=== PATIENT | female | born 1955 | race Caucasian/White ===

== ENCOUNTER 2016-06-08 09:55 | Inpatient (IN) | payer MEDICARE, OTHER ==
[~2016-06-08] VITALS: Ht 152.4 cm; Wt 81.6 kg
[2016-06-08 11:14] LABS: HEMOGLOBIN 16.8 gm/dl (12.3-15.3); RED BLOOD COUNT 5.57 M/UL (4.00-5.10)
[2016-06-08 11:15] LABS: WHITE BLOOD COUNT 34.4 K/UL (4.5-11.0)
[2016-06-08] MEDS ORDERED: GLUCOPHAGE500 MG PO (17:26)
[2016-06-08] MEDS ORDERED: ISOSORBIDE MONO60 MG PO (17:27)
[2016-06-08] MEDS ORDERED: PLAQUENIL 200200 MG PO (17:28)
[2016-06-08] MEDS ORDERED: REQUIP1 MG PO (17:28)
[2016-06-08] MEDS ORDERED: ZOCOR80 MG PO (17:28)
[2016-06-08] MEDS ORDERED: ARTIFICIAL TEA1 EAC1 OU (17:29)
--- NOTE | 2016-06-09 03:49 | NUR ---
PATIENT BEGAN RUNNING A TEMP OF 102.5, O2 SAT WAS HOVERING BETWEEN 87-89, HR WAS INCREASING TO THE 120S. PHYSICIAN WAS CONTACTED. HE REQUESTED REPEAT LABS AND ORDERED 650 MG TYLENOL PO Q 4 HOURS FOR TEMP GREATER THAN 100.4. TYLENOL ADMINISTERED AT 0345 AND LABS DRAWN AT THE SAME TIME.
[2016-06-09 03:59] LABS: HEMOGLOBIN 14.2 gm/dl (12.3-15.3); RED BLOOD COUNT 4.75 M/UL (4.00-5.10); WHITE BLOOD COUNT 25.5 K/UL (4.5-11.0)
[2016-06-09 04:23] LABS: BUN/CREATININE RATIO 26 (0-10)
[2016-06-10 06:11] LABS: HEMOGLOBIN 12.7 gm/dl (12.3-15.3); RED BLOOD COUNT 4.34 M/UL (4.00-5.10)
[2016-06-10 06:24] LABS: BUN/CREATININE RATIO 26 (0-10)
[2016-06-11 07:23] LABS: HEMOGLOBIN 12.5 gm/dl (12.3-15.3); RED BLOOD COUNT 4.27 M/UL (4.00-5.10); WHITE BLOOD COUNT 10.5 K/UL (4.5-11.0)
[2016-06-11 07:35] LABS: BUN/CREATININE RATIO 22 (0-10)
[2016-06-12 06:27] LABS: HEMOGLOBIN 11.9 gm/dl (12.3-15.3); RED BLOOD COUNT 4.07 M/UL (4.00-5.10); WHITE BLOOD COUNT 8.9 K/UL (4.5-11.0)
[2016-06-12] MEDS ORDERED: BACTRIM DS TAB1 EACH PO (12:27)
== END 2016-06-12 12:46 | disposition home or self-care (01) | DRG 872 ==
LOC: ER1 09:55 → M/S 14:24 → ZEROF 14:24 → M/S 16:46
PROVIDERS: Emergency Medicine; Physician Assistant Medical; ADMIT Internal Medicine
DX: A41.59 Other Gram-negative sepsis (principal); N10 Acute pyelonephritis; R65.20 Severe sepsis without septic shock; B96.1 Klebsiella pneumoniae [K. pneumoniae] as the cause of diseases classified elsewhere; E11.9 Type 2 diabetes mellitus without complications; E78.5 Hyperlipidemia, unspecified; M19.90 Unspecified osteoarthritis, unspecified site; E66.9 Obesity, unspecified; F17.200 Nicotine dependence, unspecified, uncomplicated; Z87.442 Personal history of urinary calculi; Z79.84 Long term (current) use of oral hypoglycemic drugs; Z79.899 Other long term (current) drug therapy; Z88.0 Allergy status to penicillin; Z68.35 Body mass index [BMI] 35.0-35.9, adult; Z98.1 Arthrodesis status; Z98.42 Cataract extraction status, left eye; Z98.890 Other specified postprocedural states; Z80.51 Family history of malignant neoplasm of kidney; Z80.52 Family history of malignant neoplasm of bladder; Z82.49 Family history of ischemic heart disease and other diseases of the circulatory system
CPT/HCPCS: 36415; 51702; 71010; 80048; 80053; 81001; 82962; 83605; 83690; 83735; 84484; 85025; 85027; 87040; 87077; 87086; 87186; 93005; 94640; 94664; 96361; 96365; 99285; J1335; J1650; J2185; J2405; J7030; J7050

== ENCOUNTER → 2016-09-09 | Outpatient (CLI) | payer MEDICARE ==
[~2016-09-09] MED LIST: ARTIFICIAL TEA1 EAC1 OU; BACTRIM DS TAB1 EACH PO; GLUCOPHAGE500 MG PO; ISOSORBIDE MONO60 MG PO; PLAQUENIL 200200 MG PO; REQUIP1 MG PO; ZOCOR80 MG PO
== END ==
LOC: HEART 5 07:32
DX: R06.00 Dyspnea, unspecified (principal); R01.1 Cardiac murmur, unspecified
CPT/HCPCS: 93306

== ENCOUNTER → 2016-09-12 | Outpatient (CLI) | payer MEDICARE | LOC: LAB 09:46 | DX: F17.210 Nicotine dependence, cigarettes, uncomplicated (principal) | CPT/HCPCS: G0297 ==

== ENCOUNTER → 2020-04-11 | Outpatient (CLI) | payer MEDICARE, OTHER ==
[~2020-04-11] MED LIST changes: +ALBUTEROL2.5 MG/3 M INH; +AMMONIUM LACTATE TD; +ASPIRIN EC81 MG PO; +B-COMPLEX PO; +B12 PO; +CALTRATE 600 +1 EAC1 PO; +CETIRIZINE HCL10 MG PO; +CRESTOR40 MG PO; +CYCLOBENZAPRINE5 MG PO; +D3 PO; +ECOTRIN81 MG PO; +FLOMAX0.4 MG PO; +NAPROXEN500 MG PO; +OXYBUTYNIN CHLOR5 MG PO; +PATADAY5 ML EYEBOTH; +ROPINIROLE HCL2 MG PO; +SIMVASTATIN40 MG PO; +TAMSULOSIN HCL0.4 MG PO; +TYLENOL #3 PO; +VIT C PO; +VITAMIN C500 M4 PO; +VITAMIN D PO; +WOMENS PROBIOTIC PO; +ZYRTEC10 MG PO
[2020-04-11 11:20] LABS: HEMOGLOBIN 15.7 gm/dl (12.3-15.3); RED BLOOD COUNT 5.08 M/UL (4.00-5.10); WHITE BLOOD COUNT 6.7 K/UL (4.5-11.0)
[2020-04-11 11:45] LABS: BUN/CREATININE RATIO 23 (0-10)
[2020-04-12 10:09] LABS: CREATININE, URINE 19.5 mg/dL (Not Estab.)
== END ==
LOC: LAB 10:01
PROVIDERS: Nurse Practitioner Family
DX: Z00.00 Encounter for general adult medical examination without abnormal findings (principal); E11.9 Type 2 diabetes mellitus without complications; J30.9 Allergic rhinitis, unspecified; I35.1 Nonrheumatic aortic (valve) insufficiency; M25.50 Pain in unspecified joint; R53.83 Other fatigue; E78.00 Pure hypercholesterolemia, unspecified; E53.8 Deficiency of other specified B group vitamins; E55.9 Vitamin D deficiency, unspecified; M06.9 Rheumatoid arthritis, unspecified
CPT/HCPCS: 80053; 80061; 82043; 82570; 82607; 83036; 84439; 84443; 85025; 85652; 86140

== ENCOUNTER → 2020-04-17 | Outpatient (CLI) | payer MEDICARE, OTHER | LOC: EXRD 09:46 | DX: M54.5 Low back pain (principal); M47.816 Spondylosis without myelopathy or radiculopathy, lumbar region | CPT/HCPCS: 72100 ==

== ENCOUNTER → 2020-04-22 | Outpatient (CLI) | payer MEDICARE, OTHER | LOC: EXRD 09:00 | DX: I73.9 Peripheral vascular disease, unspecified (principal); M79.609 Pain in unspecified limb | CPT/HCPCS: 93922; 93925 ==

== ENCOUNTER → 2020-06-25 | Day surgery (SDC) | payer MEDICARE, OTHER | END | disposition home or self-care (01) | LOC: OR 07:32 | DX: N32.81 Overactive bladder (principal); R30.0 Dysuria; R35.0 Frequency of micturition; N32.89 Other specified disorders of bladder; E78.00 Pure hypercholesterolemia, unspecified; E11.9 Type 2 diabetes mellitus without complications; M19.90 Unspecified osteoarthritis, unspecified site; M81.0 Age-related osteoporosis without current pathological fracture; F17.210 Nicotine dependence, cigarettes, uncomplicated; Z87.440 Personal history of urinary (tract) infections; Z80.52 Family history of malignant neoplasm of bladder; Z88.0 Allergy status to penicillin; Z88.8 Allergy status to other drugs, medicaments and biological substances; Z79.82 Long term (current) use of aspirin; Z79.899 Other long term (current) drug therapy | CPT/HCPCS: 81001; C1769; C1894; C2617; J7030; J7120 ==

== ENCOUNTER → 2020-07-13 | Outpatient (CLI) | payer MEDICARE, OTHER | LOC: KOH-I 08:56 | DX: R29.2 Abnormal reflex (principal); M51.17 Intervertebral disc disorders with radiculopathy, lumbosacral region; M48.04 Spinal stenosis, thoracic region | CPT/HCPCS: 72148 ==

== ENCOUNTER → 2020-10-12 | Outpatient (CLI) | payer MEDICARE, OTHER | LOC: KOH-I 12:35 | DX: F17.210 Nicotine dependence, cigarettes, uncomplicated (principal) | CPT/HCPCS: 71271 ==

== ENCOUNTER → 2020-12-25 | Outpatient (CLI) | payer MEDICARE, OTHER ==
[~2020-12-25] MED LIST changes: +AMITRIPTYLINE H25 MG PO; +HYDROCODON-ACE1 EAC2 PO; +PEPCID40 MG PO
[2020-12-25 11:20] LABS: HEMOGLOBIN 16.1 gm/dl (12.3-15.3); RED BLOOD COUNT 5.19 M/UL (4.00-5.10); WHITE BLOOD COUNT 8.6 K/UL (4.5-11.0)
[2020-12-25 11:45] LABS: BUN/CREATININE RATIO 28 (0-10)
== END ==
LOC: OPSV2 10:00 → EDSTATUS 10:00
PROVIDERS: Orthopaedic Surgery
DX: Z01.818 Encounter for other preprocedural examination (principal); M54.16 Radiculopathy, lumbar region
CPT/HCPCS: 36415; 71046; 80048; 85027; 85610; 85730; 87081; 87086; 93005

== ENCOUNTER → 2021-01-03 | Outpatient (CLI) | payer MEDICARE, OTHER ==
[~2021-01-03] MED LIST changes: +NEURONTIN300 MG PO
[2021-01-03 11:28] LABS: BUN/CREATININE RATIO 23 (0-10)
== END ==
LOC: LAB 10:44
PROVIDERS: Orthopaedic Surgery
DX: M54.16 Radiculopathy, lumbar region (principal)
CPT/HCPCS: 80048; 86850; 86900; 86901

== ENCOUNTER → 2021-01-04 | Day surgery (SDC) | payer MEDICARE, OTHER ==
[~2021-01-04] VITALS: Ht 152.4 cm; Wt 71.2 kg
== END | disposition home or self-care (01) ==
LOC: OR 05:23
DX: M51.17 Intervertebral disc disorders with radiculopathy, lumbosacral region (principal); M48.07 Spinal stenosis, lumbosacral region; E78.5 Hyperlipidemia, unspecified; M19.90 Unspecified osteoarthritis, unspecified site; G25.81 Restless legs syndrome; R73.03 Prediabetes; Z79.82 Long term (current) use of aspirin; Z79.899 Other long term (current) drug therapy; Z88.0 Allergy status to penicillin; Z20.822 Contact with and (suspected) exposure to COVID-19
CPT/HCPCS: 72020; 76000; J0690; J1040; J1100; J2001; J2405; J2704; J2710; J3010; J3370; J7040; J7120

== ENCOUNTER → 2021-01-15 | Outpatient (CLI) | payer MEDICARE, OTHER | LOC: EXRD 10:53 | DX: R07.9 Chest pain, unspecified (principal); J18.1 Lobar pneumonia, unspecified organism | CPT/HCPCS: 71046 ==

== ENCOUNTER → 2021-02-04 | Outpatient (CLI) | payer MEDICARE, OTHER ==
[2021-02-04 14:12] LABS: HEMOGLOBIN 16.4 gm/dl (12.3-15.3); RED BLOOD COUNT 5.32 M/UL (4.00-5.10)
[2021-02-04 14:31] LABS: BUN/CREATININE RATIO 20 (0-10)
[2021-02-05 08:14] LABS: VITAMIN D, 25-HYDROXY 40.9 ng/mL (30.0-100.0)
[2021-02-05 11:14] LABS: CREATININE, URINE 35.5 mg/dL (Not Estab.)
== END ==
LOC: LAB 13:14
PROVIDERS: Nurse Practitioner Family
DX: R53.83 Other fatigue (principal); E11.9 Type 2 diabetes mellitus without complications; R73.9 Hyperglycemia, unspecified; J30.9 Allergic rhinitis, unspecified; I35.1 Nonrheumatic aortic (valve) insufficiency; F41.9 Anxiety disorder, unspecified; R06.00 Dyspnea, unspecified; E53.8 Deficiency of other specified B group vitamins; E55.9 Vitamin D deficiency, unspecified; M25.50 Pain in unspecified joint; J44.9 Chronic obstructive pulmonary disease, unspecified; R10.13 Epigastric pain; R07.9 Chest pain, unspecified
CPT/HCPCS: 36415; 80053; 81001; 82043; 82550; 82552; 82553; 82570; 82607; 83036; 83615; 83625; 84439; 84443; 84484; 85025

== ENCOUNTER → 2021-02-15 | Outpatient (CLI) | payer MEDICARE, OTHER | LOC: EXRD 10:15 | DX: J44.9 Chronic obstructive pulmonary disease, unspecified (principal); R05.9 Cough, unspecified; Z87.01 Personal history of pneumonia (recurrent); R91.8 Other nonspecific abnormal finding of lung field | CPT/HCPCS: 71046 ==

== ENCOUNTER → 2021-03-22 | Outpatient (CLI) | payer MEDICARE, OTHER | LOC: EXRD 10:30 | DX: R07.9 Chest pain, unspecified (principal); R06.02 Shortness of breath; R91.8 Other nonspecific abnormal finding of lung field | CPT/HCPCS: 71046 ==

== ENCOUNTER → 2021-03-30 | Outpatient (CLI) | payer MEDICARE, OTHER | LOC: HEART 5 07:42 | DX: R07.9 Chest pain, unspecified (principal); R00.2 Palpitations; R68.89 Other general symptoms and signs; R06.02 Shortness of breath; R06.00 Dyspnea, unspecified; R00.0 Tachycardia, unspecified | CPT/HCPCS: 78452; 93306; A9502; J2785 ==

== ENCOUNTER → 2021-04-05 | Outpatient (CLI) | payer MEDICARE, OTHER | LOC: KOH-I 04-01 14:30 | DX: U07.1 COVID-19 (principal); R07.9 Chest pain, unspecified; R06.02 Shortness of breath | CPT/HCPCS: 71250 ==

== ENCOUNTER → 2021-05-10 | Outpatient (CLI) | payer MEDICARE, OTHER | LOC: EXRD 11:24 | DX: N20.0 Calculus of kidney (principal); R14.3 Flatulence | CPT/HCPCS: 74018 ==

== ENCOUNTER → 2021-10-13 | Outpatient (CLI) | payer MEDICARE, OTHER | LOC: MAMO 09:00 | DX: Z12.31 Encounter for screening mammogram for malignant neoplasm of breast (principal) | CPT/HCPCS: 77063; 77067 ==